=== PATIENT | male | born 1965 | race Two or more races ===

== ENCOUNTER 2023-10-11 22:06 | Emergency (ER) | payer OTHER ==
[~2023-10-11] VITALS: Ht 182.9 cm; Wt 89.2 kg
[2023-10-11 23:10] VITALS: BP 130/76; PULSE 107; RESP 20; O2SAT 95
== END 2023-10-11 23:08 | disposition left against medical advice (07) ==
LOC: ER 22:06
DX: S51.851A Open bite of right forearm, initial encounter (principal); Z53.21 Procedure and treatment not carried out due to patient leaving prior to being seen by health care provider; W54.0XXA Bitten by dog, initial encounter; Y93.89 Activity, other specified; Y92.89 Other specified places as the place of occurrence of the external cause; Y99.8 Other external cause status